=== PATIENT | male | born 1960 | race African-American/Black ===

== ENCOUNTER 2019-06-12 09:14 | Emergency (ER) | payer MEDICARE ==
[~2019-06-12] VITALS: Ht 172.7 cm; Wt 61.2 kg
--- NOTE | 2019-06-12 09:20 | NUR ---
ED Nurse Note: Pt from [facility] walked in with his caregiver due to SOB since this morning. Per caregiver this has been on and off but worse this morning. Hx of COPD and pt admits to smoke cigarettes everyday. AAO x4, ambulatory with SOB at rest and noted with intermittent coughing. Lungs with wheezes upon auscultation. VSS.
--- NOTE | 2019-06-12 09:22 | NUR ---
ED Nurse Note: RT at the bed side for breathing treatment.
[2019-06-12 09:24] VITALS: BP 132/85
--- NOTE | 2019-06-12 09:26 | Emergency Room Report ---
History of Present Illness General Chief Complaint: Dyspnea/Respdistress Source: Medical Record, Caregiver Present Illness HPI Patient is a 59-year-old male brought in by caregiver for increased respiratory difficulty. Patient had prior history of psychiatric disease. He was noted to be a cigarette smoker. He had prior history of COPD. Patient was noted to have increased productive cough. He reports having worsening difficulty with breathing. He had onset over the past 2 days. He denies any fever. He had not been having any hemoptysis or leg swelling. Allergies: Coded Allergies: No Known Allergies (Unverified , 06/12/19) Patient History Past Medical History: see triage record Reviewed Nursing Documentation: PMH: Agreed; PSxH: Agreed Nursing Documentation-PMH Past Medical History: No History, Except For Hx COPD: Yes Review of Systems All Other Systems: limited - by poor historian Physical Exam Vital Signs Date Time Temp Pulse Resp B/P (MAP) Pulse Ox O2 Delivery O2 Flow Rate FiO2 06/12/19 09:18 98 23 132/85 (101) 96 Room Air Sp02 EP Interpretation: reviewed, normal General Appearance: alert, mild distress, Chronically Ill Head: atraumatic ENT: normal ENT inspection, hearing grossly normal, normal voice Neck: normal inspection, full range of motion, supple, no bony tend Respiratory: normal inspection, no respiratory distress, no retraction, wheezing Cardiovascular #1: regular rate, rhythm, no edema Gastrointestinal: normal inspection, normal bowel sounds, non tender, soft, no guarding, no hernia Genitourinary: no CVA tenderness Musculoskeletal: normal inspection, back normal, normal range of motion Neurologic: normal inspection, alert, responsive, speech normal Psychiatric: normal inspection, judgement/insight normal, mood/affect normal Medical Decision Making Diagnostic Impression: Primary Impression: COPD exacerbation ER Course Patient presented for increased cough. Differential diagnosis include was not limited to pneumonia, COPD exacerbation, bronchitis, pulmonary embolism among others. Patient was given IV steroids as well as breathing treatments. He was noted to have prior history of COPD. Patient's symptoms appear to be consistent with a COPD exacerbation. Chest x-ray 1 view showed evidence of acute pneumonia. He does not have some hyperinflation. Patient was noted to have marked improvement after breathing treatments and steroids. Patient was discharged home with his caregiver. At the time of discharge patient was noted to be saturating 100% on room air. He did not appear to have any evidence of respiratory distress. He appeared to be stable for discharge. He was given prescription for Bactrim as well as steroids. He is to continue taking his inhalers. Last Vital Signs Date Time Temp Pulse Resp B/P (MAP) Pulse Ox O2 Delivery O2 Flow Rate FiO2 06/12/19 09:18 98 23 132/85 (101) 96 Room Air Status: improved Disposition: HOME, SELF-CARE Condition: Stable Scripts Trimethoprim/Sulfamethoxazole 160/800* (BACTRIM DS TABLET*) 1 Each Tablet 1 TAB ORAL Q12H, #14 TAB 0 Refills Prov: You Joaquin MD 06/12/19 Prednisone* (PREDNISONE*) 20 Mg Tablet 40 MG ORAL DAILY, #10 TAB Prov: You Joaquin MD 06/12/19 You Joaquin MD Jun 12, 2019 09:26
[2019-06-12] MEDS ORDERED: Albuterol/Ipratropium 3ml neb HHN ONE ×3 (09:30→12:45)
[2019-06-12] MEDS ORDERED: ATORVASTATIN CA10 MG ORAL (09:35)
[2019-06-12] MEDS ORDERED: FOLIC ACID1 M1 PO (09:35)
[2019-06-12] MEDS ORDERED: SPIRIVA18 MCG INH (09:35)
[2019-06-12] MEDS ORDERED: NORVASC5 MG ORAL (09:35)
[2019-06-12] MEDS ORDERED: VITAMIN B-1100 MG ORAL (09:35)
[2019-06-12] MEDS ORDERED: VENTOLIN HFA18 GM INH (09:35)
[2019-06-12] MEDS ORDERED: ZANTAC150 MG ORAL (09:35)
[2019-06-12] MEDS ORDERED: BREO ELLIPTA 21 EACH IH (09:35)
--- NOTE | 2019-06-12 09:35 | NUR ---
ED Nurse Note: furniture technician at the bed side for CXR.
--- NOTE | 2019-06-12 09:54 | Diagnostic Imaging Report ---
Indication: Dyspnea Comparison: None A single view chest radiograph was obtained. Findings: There is evidence of emphysema with patchy areas of hyperlucency within the upper lobes worse on the right upper lobe compared to the left. Generalized hyperinflation noted. Heart is normal in size. Aorta is mildly ectatic. The bones appear osteopenic. IMPRESSION: Pulmonary emphysema/COPD
--- NOTE | 2019-06-12 10:17 | NUR ---
ED Nurse Note: [phone] [place] [facility] caregiver of Pt.
[2019-06-12] MEDS ORDERED: Bactrim-DS 1 tab ORAL ONE (11:30)
[2019-06-12] MEDS ORDERED: PREDNISONE20 MG ORAL (12:12)
[2019-06-12] MEDS ORDERED: BACTRIM DS TAB1 EAC1 ORAL (12:12)
--- NOTE | 2019-06-12 12:15 | NUR ---
ED Nurse Note: CALLED [facility] AND INFORMED THAT PT. IS READY FOR PICK-UP
--- NOTE | 2019-06-12 12:22 | NUR ---
Note [email or web address] in EDM - 06/12/19 at 1245 by [facility] ER DISCHARGE NOTE: Patient is cleared to be discharged per ERMD, pt is aox4, on room air, with stable vital signs. pt was given dc and prescription instructions, pt was able to verbalize understanding, pt id band removed. pt is able to ambulate with steady gait. pt took all belongings.
--- NOTE | 2019-06-12 12:45 | NUR ---
ED Nurse Note: Called RT for breathing treatment.
--- NOTE | 2019-06-12 12:52 | NUR ---
ED Nurse Note: RT at the bed side for breathing treatment.
[2019-06-12 13:49] VITALS: BP 132/85
--- NOTE | 2019-06-12 13:49 | NUR ---
ER DISCHARGE NOTE: Patient is cleared to be discharged per ERMD, pt is aox4, on room air, with stable vital signs. pt was given dc and prescription instructions, pt was able to verbalize understanding, pt id removed. pt is able to ambulate with steady gait. pt took all belongings.
== END 2019-06-12 13:49 | disposition home or self-care (01) ==
LOC: EMR 09:35
DX: J44.1 Chronic obstructive pulmonary disease with (acute) exacerbation (principal); Z87.891 Personal history of nicotine dependence
CPT/HCPCS: 71045; 94640; 94664; 99284; J7620